=== PATIENT | female | born 1945 | race Caucasian/White ===

== ENCOUNTER 2025-02-21 15:39 | Emergency (ER) | payer MEDICARE, BC ==
[~2025-02-21] VITALS: Ht 167.6 cm; Wt 68.0 kg
[2025-02-21] MEDS ORDERED: CEPH500 PO (18:37)
== END 2025-02-21 18:44 | disposition home or self-care (01) ==
LOC: ER 15:39
DX: T84.622A Infection and inflammatory reaction due to internal fixation device of right tibia, initial encounter (principal); L03.115 Cellulitis of right lower limb; Y79.8 Miscellaneous orthopedic devices associated with adverse incidents, not elsewhere classified
CPT/HCPCS: 73590; 99283-25

== ENCOUNTER 2025-02-25 10:44 | Emergency (ER) | payer MEDICARE, BC ==
[~2025-02-25] VITALS: Ht 167.6 cm; Wt 72.6 kg
[~2025-02-25 10:44] MED LIST: CEPH500 PO
[2025-02-25] MEDS ORDERED: CEPH500 PO (10:55)
[2025-02-25] MEDS ORDERED: Bactrim Ds Tab1 EACH PO (10:55)
== END 2025-02-25 11:02 | disposition home or self-care (01) ==
LOC: ER 10:44
DX: L03.115 Cellulitis of right lower limb (principal); Z79.2 Long term (current) use of antibiotics
CPT/HCPCS: 99282